=== PATIENT | female | born 1935 | race Caucasian/White ===

== ENCOUNTER 2017-10-10 16:12 | Inpatient (IN) | payer MEDICARE, BC, OTHER ==
[2017-10-10 17:08] LABS: HEMATOCRIT 24.1 % (36.0-47.0); HEMOGLOBIN 7.7 g/dl (12.0-15.5); MEAN CORPUSCULAR HEMOGLOBIN 31.7 pg (27.0-33.0); MEAN CORPUSCULAR VOLUME 99.2 fl (80.0-96.0); PLATELET COUNT, AUTOMATED 218 10^3/uL (150-450); RED BLOOD COUNT 2.43 10^6/uL (4.00-5.40); RED CELL DISTRIBUTION WIDTH 16.5 % (11.5-14.5); WHITE BLOOD COUNT 8.1 10^3/uL (4.0-10.0)
[2017-10-10 17:19] LABS: PROTHROMBIN TIME 14.4 SECONDS (12.4-14.5)
[2017-10-10 17:20] LABS: PARTIAL THROMBOPLASTIN TIME 33.6 SECONDS (26.8-37.9)
[2017-10-10] MEDS: PANTOPRAZOLE 40MG INJ (PROTONIX) (C9113) IV (18:16)
[2017-10-10] MEDS: PANTOPRAZOLE SODIUM 40 MG in D5W 50 ML IV ×2 (18:16→21:24)
[2017-10-10] MEDS: NS 1,000 ML IV (18:19)
[2017-10-10 18:37] LABS: ANION GAP 4 MEQ/L (8-16); BLOOD UREA NITROGEN 28 MG/DL (7-18); CALCIUM LEVEL 8.5 MG/DL (8.8-10.2); CARBON DIOXIDE LEVEL 26 MEQ/L (21-32); CHLORIDE LEVEL 108 MEQ/L (98-107); CREATININE FOR GFR 1.42 MG/DL (0.55-1.30); GLOMERULAR FILTRATION RATE 37.6 (>32); GLUCOSE, FASTING 92 MG/DL (70-100); POTASSIUM SERUM 4.1 MEQ/L (3.5-5.1); SODIUM LEVEL 138 MEQ/L (136-145)
[2017-10-10] MEDS ORDERED: ACETAMINOPHEN TAB 650MG DOSE (2X325MG) PO (19:00)
[2017-10-10] MEDS: ATORVASTATIN 20 MG TAB PO (20:34)
[2017-10-10] MEDS: FLECAINIDE 50MG TABLET PO (20:34)
[2017-10-10] MEDS: METOPROLOL TART 25 MG TABLET PO (20:35)
[2017-10-10 22:57] LABS: IMMEDIATE SPIN CROSSMATCH 1 3
[2017-10-11] MEDS: PANTOPRAZOLE SODIUM 40 MG in D5W 50 ML IV ×6 (02:22→23:59)
[2017-10-11 04:29] LABS: BASO % 0.3 % (0.0-1.0); EOS # 0.1 10^3/uL (0.0-0.50); EOS % 1.8 % (0.0-3.0); HEMATOCRIT 28.3 % (36.0-47.0); HEMOGLOBIN 9.3 g/dl (12.0-15.5); IMMATURE GRANULOCYTE % 1.4 % (0-3.0); LYMPH # 1.3 10^3/uL (1.5-4.5); MEAN CORPUSCULAR HEMOGLOBIN 31.2 pg (27.0-33.0); MEAN CORPUSCULAR HGB CONC 32.9 g/dl (32.0-36.5); MONO # 0.8 10^3/uL (0.0-0.8); MONO % 10.6 % (0.0-5.0); NEUTROPHILS # 4.8 10^3/uL (1.8-7.7); NEUTROPHILS % 67.9 % (36.0-66.0); PLATELET COUNT, AUTOMATED 190 10^3/uL (150-450); RED BLOOD COUNT 2.98 10^6/uL (4.00-5.40); WHITE BLOOD COUNT 7.1 10^3/uL (4.0-10.0)
[2017-10-11 04:45] LABS: ALBUMIN 2.3 GM/DL (3.2-5.2); ALBUMIN/GLOBULIN RATIO 0.72 (1.00-1.93); ALKALINE PHOSPHATASE 90 U/L (45-117); ALT/SGPT 20 U/L (12-78); ANION GAP 6 MEQ/L (8-16); AST/SGOT 25 U/L (7-37); BILIRUBIN,TOTAL 1.1 MG/DL (0.2-1.0); BLOOD UREA NITROGEN 25 MG/DL (7-18); CARBON DIOXIDE LEVEL 25 MEQ/L (21-32); CHLORIDE LEVEL 109 MEQ/L (98-107); CREATININE FOR GFR 1.14 MG/DL (0.55-1.30); GLOMERULAR FILTRATION RATE 48.5 (>32); GLUCOSE, FASTING 89 MG/DL (70-100); MAGNESIUM LEVEL 1.8 MG/DL (1.8-2.4); POTASSIUM SERUM 3.7 MEQ/L (3.5-5.1); SODIUM LEVEL 140 MEQ/L (136-145); TOTAL PROTEIN 5.5 GM/DL (6.4-8.2)
[2017-10-11] MEDS: LEVOTHYROXINE 50MCG TABLET (0.05MG) PO (05:07)
[2017-10-11] MEDS: HEPARIN SOD (PORCINE) 5000 UNITS/ML VIAL As Ordered (08:08)
[2017-10-11] MEDS: LIDOCAINE 1% MDV 20ML VIAL As Ordered (08:30)
[2017-10-11] MEDS: BUPIVACAINE HCL 0.5% 30 ML VIAL As Ordered (08:30)
[2017-10-11] MEDS ORDERED: fentaNYL 100 MCG/2 ML INJECTION (J3010) As Ordered (08:39)
[2017-10-11] MEDS ORDERED: MIDAZOLAM INJ 2 MG/2 ML VIAL (J2250) As Ordered (08:39)
[2017-10-11] MEDS ORDERED: ONDANSETRON 4MG/2ML VIAL (J2405) IV (09:45)
[2017-10-11] MEDS ORDERED: fentaNYL 100 MCG/2 ML INJECTION (J3010) IV (09:45)
[2017-10-11] MEDS: FLECAINIDE 50MG TABLET PO ×2 (10:07→20:03)
[2017-10-11] MEDS: ASPIRIN 81 MG CHEW TABLET PO (10:07)
[2017-10-11] MEDS: METOPROLOL TART 25 MG TABLET PO ×2 (10:08→20:03)
[2017-10-11] MEDS: NS 1,000 ML IV ×2 (10:18→17:45)
[2017-10-11 11:55] LABS: HEMATOCRIT 31.5 % (36.0-47.0); HEMOGLOBIN 10.6 g/dl (12.0-15.5)
[2017-10-11] MEDS ORDERED: PROPOFOL 200 MG/20 ML VIAL As Ordered (17:35)
[2017-10-11] MEDS ORDERED: LIDOCAINE 2% INJ 100 MG/5 ML SDV (FOR ANES.) As Ordered (17:35)
[2017-10-11] MEDS ORDERED: ePHEDrine SULFATE 25 MG/5 ML(5MG/ML) SYRINGE As Ordered (17:35)
[2017-10-11 18:22] LABS: HEMATOCRIT 30.4 % (36.0-47.0); HEMOGLOBIN 10.1 g/dl (12.0-15.5)
[2017-10-11] MEDS: ATORVASTATIN 20 MG TAB PO (20:03)
[2017-10-12 00:26] LABS: HEMATOCRIT 28.7 % (36.0-47.0); HEMOGLOBIN 9.7 g/dl (12.0-15.5)
[2017-10-12] MEDS: PANTOPRAZOLE SODIUM 40 MG in D5W 50 ML IV (04:21)
[2017-10-12 04:37] LABS: BASO % 0.2 % (0.0-1.0); EOS # 0.1 10^3/uL (0.0-0.50); EOS % 0.8 % (0.0-3.0); HEMATOCRIT 28.6 % (36.0-47.0); HEMOGLOBIN 9.5 g/dl (12.0-15.5); IMMATURE GRANULOCYTE % 0.8 % (0-3.0); LYMPH # 1.2 10^3/uL (1.5-4.5); LYMPH % 13.5 % (24.0-44.0); MEAN CORPUSCULAR HGB CONC 33.2 g/dl (32.0-36.5); MEAN CORPUSCULAR VOLUME 93.5 fl (80.0-96.0); MONO # 0.8 10^3/uL (0.0-0.8); MONO % 9.5 % (0.0-5.0); NEUTROPHILS # 6.5 10^3/uL (1.8-7.7); NEUTROPHILS % 75.2 % (36.0-66.0); PLATELET COUNT, AUTOMATED 197 10^3/uL (150-450); RED BLOOD COUNT 3.06 10^6/uL (4.00-5.40); RED CELL DISTRIBUTION WIDTH 17.7 % (11.5-14.5); WHITE BLOOD COUNT 8.7 10^3/uL (4.0-10.0)
[2017-10-12 04:53] LABS: ALBUMIN 2.2 GM/DL (3.2-5.2); ALBUMIN/GLOBULIN RATIO 0.67 (1.00-1.93); ALKALINE PHOSPHATASE 91 U/L (45-117); ALT/SGPT 27 U/L (12-78); ANION GAP 6 MEQ/L (8-16); AST/SGOT 29 U/L (7-37); BILIRUBIN,TOTAL 0.9 MG/DL (0.2-1.0); BLOOD UREA NITROGEN 20 MG/DL (7-18); CALCIUM LEVEL 7.8 MG/DL (8.8-10.2); CARBON DIOXIDE LEVEL 26 MEQ/L (21-32); CHLORIDE LEVEL 109 MEQ/L (98-107); CREATININE FOR GFR 1.12 MG/DL (0.55-1.30); GLOMERULAR FILTRATION RATE 49.5 (>32); GLUCOSE, FASTING 99 MG/DL (70-100); MAGNESIUM LEVEL 1.6 MG/DL (1.8-2.4); POTASSIUM SERUM 3.8 MEQ/L (3.5-5.1); SODIUM LEVEL 141 MEQ/L (136-145); TOTAL PROTEIN 5.5 GM/DL (6.4-8.2)
[2017-10-12] MEDS: LEVOTHYROXINE 50MCG TABLET (0.05MG) PO (06:06)
[2017-10-12] MEDS: ASPIRIN 81 MG CHEW TABLET PO (08:22)
[2017-10-12] MEDS: METOPROLOL TART 25 MG TABLET PO (08:23)
[2017-10-12] MEDS: FLECAINIDE 50MG TABLET PO (08:23)
== END 2017-10-12 11:10 | disposition home or self-care (01) | DRG 253 ==
LOC: M ED 16:12 → M ED INP 18:57 → M ICU 19:32
PROC: 06H03DZ Insertion of Intraluminal Device into Inferior Vena Cava, Percutaneous Approach (ICD-10-PCS; principal; 2017-10-11 08:00)
PROC: 0DB68ZX Excision of Stomach, Via Natural or Artificial Opening Endoscopic, Diagnostic (ICD-10-PCS; 2017-10-11 08:25)
PROC: 0DB58ZX Excision of Esophagus, Via Natural or Artificial Opening Endoscopic, Diagnostic (ICD-10-PCS; 2017-10-11 08:25)
PROC: 0DB98ZX Excision of Duodenum, Via Natural or Artificial Opening Endoscopic, Diagnostic (ICD-10-PCS; 2017-10-11 08:25)
PROC: 30233N1 Transfusion of Nonautologous Red Blood Cells into Peripheral Vein, Percutaneous Approach (ICD-10-PCS; 2017-10-11 08:25)
DX: I82.411 Acute embolism and thrombosis of right femoral vein (principal); K92.2 Gastrointestinal hemorrhage, unspecified; K22.10 Ulcer of esophagus without bleeding; I82.811 Embolism and thrombosis of superficial veins of right lower extremity; I45.6 Pre-excitation syndrome; I48.91 Unspecified atrial fibrillation; I12.9 Hypertensive chronic kidney disease with stage 1 through stage 4 chronic kidney disease, or unspecified chronic kidney disease; K26.9 Duodenal ulcer, unspecified as acute or chronic, without hemorrhage or perforation; K25.9 Gastric ulcer, unspecified as acute or chronic, without hemorrhage or perforation; E78.5 Hyperlipidemia, unspecified; D50.9 Iron deficiency anemia, unspecified; N18.3 Chronic kidney disease, stage 3 (moderate); E03.9 Hypothyroidism, unspecified; Z79.82 Long term (current) use of aspirin; Z79.899 Other long term (current) drug therapy; Z88.0 Allergy status to penicillin; Z96.652 Presence of left artificial knee joint

== ENCOUNTER 2017-12-29 12:49 | Day surgery (SDC) | payer MEDICARE, BC, OTHER ==
[2017-12-29] MEDS: NS 1,000 ML IV (13:00)
== END 2017-12-29 15:24 | disposition home or self-care (01) ==
LOC: M OPP 12:49
DX: K44.9 Diaphragmatic hernia without obstruction or gangrene (principal); K31.89 Other diseases of stomach and duodenum; K26.0 Acute duodenal ulcer with hemorrhage; I12.9 Hypertensive chronic kidney disease with stage 1 through stage 4 chronic kidney disease, or unspecified chronic kidney disease; E78.00 Pure hypercholesterolemia, unspecified; E03.9 Hypothyroidism, unspecified; N18.3 Chronic kidney disease, stage 3 (moderate); I48.91 Unspecified atrial fibrillation; M17.9 Osteoarthritis of knee, unspecified; Z79.82 Long term (current) use of aspirin; Z79.899 Other long term (current) drug therapy; Z88.0 Allergy status to penicillin; Z78.0 Asymptomatic menopausal state; Z95.828 Presence of other vascular implants and grafts; Z96.652 Presence of left artificial knee joint; Z89.422 Acquired absence of other left toe(s)
CPT/HCPCS: 43235

== ENCOUNTER → 2018-07-16 | Outpatient (CLI) | payer MEDICARE, BC, OTHER ==
[~2018-07-16] MED LIST: ACET1TAB55 PO; ASPI1TAB PO; ASPI81CH PO; ATOR1TAB21 PO; CATA0.2D TD; CEPH500C PO; FERR1TAB8 PO; FLEC25TA PO; FLEC50HA PO; FURO20TA2 PO; ISOVUE-300 61% 50ML VIAL (Q9967) As Ordered ONE; LEVO25TA5 PO; LIDOCAINE 2% MDV 20 ML VIAL As Ordered ONE; METO1TAB87 PO; MULTCAP11 PO; OMEP40CA2 PO; PRESCAP PO; STOO100C PO; SYNT50TA PO
--- NOTE | 2018-08-05 07:57 | REPIR ---
DATE OF PROCEDURE: 07/16/2018 PREOPERATIVE DIAGNOSES: Deep venous thrombosis. Placement of the loop recorder. Heme-positive stool. Status post inferior vena cava filter placement. POSTOPERATIVE DIAGNOSES: Deep venous thrombosis. Placement of the loop recorder. Heme-positive stool. Status post inferior vena cava filter placement. PROCEDURE PERFORMED: Ultrasound-guided right internal jugular vein cannulation. Inferior vena cava catheter placement with venogram. Inferior vena cava filter removal. SURGEON: Dr. Bernabe James. SUPERVISOR CUSTOMER COMPLAINT SERVICE: ANESTHESIA: Local with 10 mL of 2% lidocaine. FLUORO TIME: 2.5 minutes. CONTRAST: 6 mL of Isovue 300. COMPLICATIONS: None. DRAINS: None. SPECIMENS: None. IMPLANTS: None. INDICATION: The patient is a 83-year-old female who underwent placement of an inferior vena cava filter secondary to deep venous thrombosis and inability to undergo anticoagulation secondary to heme-positive stool and recent placement of a loop recorder. The patient now recovered and no longer requires the inferior vena cava filter which will be removed. The procedure was described and placed the patient in detail including drawing of pictures demonstrating the procedure and anatomy. Risks, benefits and alternative options were discussed with the patient. Alternative treatment options included, but were not limited to no intervention. Benefits included but were not limited to removal of the filter and reduction in the risks associated with the inferior vena cava filter. Risks included but were not limited to infection, bleeding, renal failure requiring hemodialysis, possible need for open surgical intervention, inferior vena cava anterior requiring exploratory laparotomy with repair, cerebrovascular accident myocardial infarction, pulmonary embolus, deep venous thrombosis (DVT), loss of limb, loss of life, poor outcome and poor results. The patient reported understanding and acceptance of the risks, benefits and alternative options and consents to proceed with inferior vena cava filter removal. No guarantees or promises were made to the patient regarding the procedure, and/or results. DESCRIPTION OF PROCEDURE: The patient was taken to the angiography suite, placed supine on the angiography room table and then prepped and draped in a standard surgical fashion. The right internal jugular vein was cannulated with a micropuncture needle after anesthetizing overlying skin with 2% lidocaine using ultrasound guide cannulation. Real-time concurrent visualization of the entry of the micropuncture needle into the right internal jugular vein was performed with a hard copy image performed. The right internal jugular vein was noted to be easily compressible, widely patent and free of thrombus. The micropuncture wire was advanced to the micropuncture needle which was upsized to a micropuncture sheath. A Bentson wire was advanced through the micropuncture sheath was upsized to an introducer sheath and catheter. The catheter was placed in the inferior vena cava. The inferior vena cava venogram was performed showing the inferior vena cava filter to be in good position and alignment with no thrombus within the filter. The filter was then snared and removed without difficulty. A completion inferior vena cava venogram was performed showing good flow through the inferior vena cava with no extravasation, injury or dissection noted. The sheath was removed from the right internal jugular vein with manual compression applied for hemostasis. Dressings were then applied. Once hemostasis was achieved. The patient tolerated the procedure well. All instrument, sponge, needle counts were correct at the end the case. There were no complications. Dr. James was present for and directed the entire case. The patient was transferred to the holding area where the procedure and results were discussed with the patient and all her questions were answered. The patient was discharged in stable condition. RADIOLOGIC SUPERVISION INTERPRETATION: The ultrasound showed the right internal jugular vein to be easily compressible, widely patent and free of thrombus. Ultrasound was used to guide cannulation of the right internal jugular vein with real-time concurrent visualization of the entry of the needle into the right internal jugular vein with a hard copy image preserved. Catheter was placed in the inferior vena cava and the inferior vena cavogram showed the filter to be in good position and good alignment with no thrombus noted within the shoulder. The filter was retrieved under fluoroscopic guidance with a final inferior vena cavogram showing the inferior vena cava to be widely patent with no extravasation injury or dissection.
== END | disposition home or self-care (01) ==
LOC: M IRPRO 09:48
PROVIDERS: ATTEND Surgery Vascular Surgery
DX: Z45.89 Encounter for adjustment and management of other implanted devices (principal); Z86.718 Personal history of other venous thrombosis and embolism; R19.5 Other fecal abnormalities
CPT/HCPCS: 37193; C1769; C1894; Q9967